=== PATIENT | female | born 1990 | race Caucasian/White ===

== ENCOUNTER 2018-07-20 10:19 | Inpatient (IN) | payer OTHER ==
[~2018-07-20] VITALS: Ht 170.2 cm; Wt 76.7 kg
[2018-07-20 10:32] VITALS: BP 122/88
[2018-07-20] MEDS ORDERED: NACL 0.9% 1,000 ML IV SCH ×2 (10:49→14:13)
[2018-07-20] MEDS ORDERED: ONDANSETRON 4 MG/2 ML VIAL IVP ONE (10:50)
[2018-07-20] MEDS ORDERED: HYDROmorphone PFS 2 MG/ML SYR IVP ONE (10:50)
[2018-07-20] MEDS ORDERED: KETOROLAC 30 MG/ML VIAL IVP ONE (10:50)
[2018-07-20 11:25] LABS: BASOPHILS % (AUTO) 0.3 % (0.0-2.0); EOSINOPHILS # (AUTO) 0.1 K/uL (0-0.4); EOSINOPHILS % (AUTO) 1.1 % (0.0-4.0); HEMATOCRIT 43.3 % (36-48); HEMOGLOBIN 14.4 g/dL (12.0-16.0); LYMPHOCYTES # (AUTO) 2.3 K/uL (2.5-16.5); LYMPHOCYTES % (AUTO) 36.7 % (20.5-51.1); MEAN CORPUSCULAR HEMOGLOBIN 29 pg (27-31); MEAN CORPUSCULAR HGB CONC 33 g/dL (33-37); MEAN CORPUSCULAR VOLUME 87.6 fL (80-94); MONOCYTES # (AUTO) 0.3 K/uL (0.8-1.0); NEUTROPHILS # (AUTO) 3.5 K/uL (1.8-7.7); NEUTROPHILS % (AUTO) 56.9 % (42.2-75.2); PLATELET COUNT (AUTO) 298 K/uL (140-450); RED BLOOD CELL COUNT(AUTO) 4.94 MIL/uL (4.20-5.40); RED CELL DISTRIBUTION WIDTH 13.2 % (11.6-13.7); WHITE BLOOD COUNT (AUTO) 6.2 K/uL (4.8-10.8)
[2018-07-20 11:32] LABS: ANION GAP 14.6 (8-16); CARBON DIOXIDE 23.8 mmol/L (21-32); CREATININE 0.6 mg/dL (0.6-1.3); POTASSIUM 4.4 mmol/L (3.5-5.1)
[2018-07-20 11:36] LABS: APPEARANCE,URINE CLEAR (CLEAR); BILIRUBIN,URINE NEGATIVE (NEGATIVE); BLOOD, URINE NEGATIVE (NEGATIVE); COLOR,URINE YELLOW (YELLOW); LEUKOCYTE ESTERASE ,URINE NEGATIVE (NEGATIVE); NITRITE, URINE NEGATIVE (NEGATIVE); PH,URINE 5.5 (5.0-9.0); UGLUCOSE 3+ (NEGATIVE)
[2018-07-20 11:40] LABS: ALBUMIN 3.6 g/dL (3.4-5.0); TOTAL BILIRUBIN 0.3 mg/dL (0.0-1.0)
[2018-07-20] MEDS ORDERED: MORPHINE SULFATE 4 MG/ML SYR IVP ONE (13:25)
[2018-07-20] MEDS ORDERED: ONDANSETRON 4 MG/2 ML VIAL IVP PRN (14:15)
[2018-07-20 14:50] VITALS: BP 129/88
[2018-07-20] MEDS ORDERED: PIPER/TAZO 3.375GM/D5W PREMIX 50 ML IV SCH ×3 (15:30→21:00)
[2018-07-20] MEDS: DEXT 5% / NACL 0.45% 1,000 ML IV SCH (16:13)
[2018-07-20] MEDS: LORazepam 2 MG/ML VIAL IVP PRN ×2 (16:18→19:47)
[2018-07-20] MEDS ORDERED: PIPERACILLIN/TAZOBACTAM 3.375 GM in DEXTROSE 5% 50 ML IV SCH (18:00)
[2018-07-20] MEDS: PIPER/TAZO 3.375GM/D5W PREMIX 50 ML IV SCH ×2 (18:23→23:40)
[2018-07-20 20:00] VITALS: BP 118/77
[2018-07-21] VITALS: BP 120/83
[2018-07-21] MEDS: DEXT 5% / NACL 0.45% 1,000 ML IV SCH ×3 (05:02→20:15)
[2018-07-21] MEDS: PIPER/TAZO 3.375GM/D5W PREMIX 50 ML IV SCH ×3 (05:03→18:11)
[2018-07-21] MEDS: MORPHINE SULFATE 4 MG/ML SYR IVP PRN (05:08)
[2018-07-21 06:38] LABS: BASOPHILS % (AUTO) 0.7 % (0.0-2.0); EOSINOPHILS # (AUTO) 0.1 K/uL (0-0.4); EOSINOPHILS % (AUTO) 1.9 % (0.0-4.0); HEMOGLOBIN 12.9 g/dL (12.0-16.0); LYMPHOCYTES # (AUTO) 2.4 K/uL (2.5-16.5); LYMPHOCYTES % (AUTO) 36.2 % (20.5-51.1); MEAN CORPUSCULAR HEMOGLOBIN 29 pg (27-31); MEAN CORPUSCULAR HGB CONC 33 g/dL (33-37); MEAN CORPUSCULAR VOLUME 88.8 fL (80-94); MONOCYTES # (AUTO) 0.5 K/uL (0.8-1.0); MONOCYTES % (AUTO) 6.8 % (1.7-9.3); NEUTROPHILS # (AUTO) 3.7 K/uL (1.8-7.7); NEUTROPHILS % (AUTO) 54.4 % (42.2-75.2); PLATELET COUNT (AUTO) 256 K/uL (140-450); RED BLOOD CELL COUNT(AUTO) 4.39 MIL/uL (4.20-5.40); RED CELL DISTRIBUTION WIDTH 13.4 % (11.6-13.7); WHITE BLOOD COUNT (AUTO) 6.7 K/uL (4.8-10.8)
[2018-07-21 07:09] LABS: ANION GAP 12.7 (8-16); CARBON DIOXIDE 24.2 mmol/L (21-32); CREATININE 0.7 mg/dL (0.6-1.3); MAGNESIUM 1.9 mg/dL (1.8-2.4); POTASSIUM 3.9 mmol/L (3.5-5.1); TOTAL BILIRUBIN 0.5 mg/dL (0.0-1.0)
[2018-07-21 08:00] VITALS: BP 113/77
[2018-07-21] MEDS: LORazepam 2 MG/ML VIAL IVP PRN ×3 (08:29→18:12)
[2018-07-21 09:25] LABS: PROTHROMBIN TIME 9.7 secs (10.8-13.4)
[2018-07-21] MEDS: ENOXAPARIN 40 MG/0.4 ML SYR SUBQ SCH (09:37)
[2018-07-21] MEDS ORDERED: INSULIN LISPRO SLIDING SCALE 100 UNITS/ML VIAL SUBQ PRN (13:25)
[2018-07-21 16:00] VITALS: BP 111/71
[2018-07-21] MEDS: KETOROLAC 30 MG/ML VIAL IVP PRN (22:23)
[2018-07-22] VITALS: BP 96/70
[2018-07-22] MEDS: PIPER/TAZO 3.375GM/D5W PREMIX 50 ML IV SCH ×5 (00:27→21:28)
[2018-07-22] MEDS: DEXT 5% / NACL 0.45% 1,000 ML IV SCH ×2 (03:35→06:15)
[2018-07-22 08:00] VITALS: BP 115/76
[2018-07-22] MEDS ORDERED: BUPIVACAINE-MPF 0.25% 30 ML VIAL INJ ONE (08:11)
[2018-07-22] MEDS ORDERED: DEXTROSE 50% 50 ML SYR IVP PRN ×2 (08:35→14:45)
[2018-07-22] MEDS: INSULIN LISPRO SLIDING SCALE 100 UNITS/ML VIAL SUBQ PRN ×5 (08:39→23:54)
[2018-07-22] MEDS: ENOXAPARIN 40 MG/0.4 ML SYR SUBQ SCH (09:00)
[2018-07-22] MEDS: NACL 0.9% 1,000 ML IV SCH ×2 (09:00→19:00)
[2018-07-22] MEDS: LORazepam 0.5 MG TAB PO PRN ×2 (10:22→17:02)
[2018-07-22] MEDS ORDERED: NICOTINE TRANSD SYS 14 MG/24 HR PATCH TD SCH (11:15)
[2018-07-22] MEDS ORDERED: BLOOD GLUCOSE MONITORING 1 DEV DEV FS SCH (12:00)
[2018-07-22] MEDS: MORPHINE SULFATE 4 MG/ML SYR IVP PRN ×2 (12:35→23:59)
[2018-07-22] MEDS ORDERED: INSULIN LISPRO SLIDING SCALE 100 UNITS/ML VIAL SUBQ PRN (14:45)
[2018-07-22 16:00] VITALS: BP 115/76
[2018-07-22] MEDS: BLOOD GLUCOSE MONITORING 1 DEV DEV FS SCH ×3 (16:30→23:53)
[2018-07-22] MEDS: KETOROLAC 30 MG/ML VIAL IVP PRN (16:57)
[2018-07-22] MEDS ORDERED: TEMAZEPAM 15 MG CAP PO ONE (21:00)
[2018-07-22] MEDS ORDERED: TEMAZEPAM 15 MG CAP PO PRN (21:00)
[2018-07-22] MEDS ORDERED: TEMAZEPAM 15 MG CAP PO SCH (21:00)
[2018-07-22 23:58] VITALS: BP 103/65
[2018-07-23] MEDS: BLOOD GLUCOSE MONITORING 1 DEV DEV FS SCH ×5 (03:56→21:00)
[2018-07-23] MEDS: NACL 0.9% 1,000 ML IV SCH ×2 (05:00→12:54)
[2018-07-23] MEDS: PIPER/TAZO 3.375GM/D5W PREMIX 50 ML IV SCH ×4 (05:49→23:42)
[2018-07-23] MEDS: MORPHINE SULFATE 4 MG/ML SYR IVP PRN ×3 (05:53→18:07)
[2018-07-23] MEDS ORDERED: BUPIVACAINE-MPF 0.25% 30 ML VIAL INJ ONE (06:44)
[2018-07-23 07:42] LABS: BASOPHILS % (AUTO) 0.2 % (0.0-2.0); EOSINOPHILS # (AUTO) 0.1 K/uL (0-0.4); EOSINOPHILS % (AUTO) 1.6 % (0.0-4.0); HEMATOCRIT 35.5 % (36-48); HEMOGLOBIN 11.8 g/dL (12.0-16.0); LYMPHOCYTES # (AUTO) 2.9 K/uL (2.5-16.5); LYMPHOCYTES % (AUTO) 40.4 % (20.5-51.1); MEAN CORPUSCULAR HEMOGLOBIN 30 pg (27-31); MEAN CORPUSCULAR HGB CONC 33 g/dL (33-37); MEAN CORPUSCULAR VOLUME 88.9 fL (80-94); MONOCYTES # (AUTO) 0.5 K/uL (0.8-1.0); MONOCYTES % (AUTO) 6.3 % (1.7-9.3); NEUTROPHILS # (AUTO) 3.7 K/uL (1.8-7.7); NEUTROPHILS % (AUTO) 51.5 % (42.2-75.2); PLATELET COUNT (AUTO) 251 K/uL (140-450); RED CELL DISTRIBUTION WIDTH 13.3 % (11.6-13.7); WHITE BLOOD COUNT (AUTO) 7.2 K/uL (4.8-10.8)
[2018-07-23] MEDS: INSULIN LISPRO SLIDING SCALE 100 UNITS/ML VIAL SUBQ PRN ×4 (07:58→21:04)
[2018-07-23 08:00] VITALS: BP 123/70
[2018-07-23 08:00] LABS: ALBUMIN 2.5 g/dL (3.4-5.0); ANION GAP 14.2 (8-16); CARBON DIOXIDE 23.8 mmol/L (21-32); CREATININE 0.6 mg/dL (0.6-1.3); TOTAL BILIRUBIN 0.3 mg/dL (0.0-1.0)
[2018-07-23] MEDS ORDERED: DEXAMETHASONE 4 MG/ML VIAL ONE (08:00)
[2018-07-23] MEDS ORDERED: ROCURONIUM 50 MG/5 ML VIAL IV ONE (08:00)
[2018-07-23] MEDS ORDERED: KETOROLAC 30 MG/ML VIAL ONE (08:00)
[2018-07-23] MEDS ORDERED: PROPOFOL 200 MG/20 ML VIAL IV ONE (08:00)
[2018-07-23] MEDS ORDERED: DESFLURANE 240 ML BTL INH ONE (08:00)
[2018-07-23] MEDS ORDERED: ONDANSETRON 4 MG/2 ML VIAL ONE (08:00)
[2018-07-23] MEDS ORDERED: fentaNYL 0.05 MG/ML VIAL ONE (08:10)
[2018-07-23] MEDS ORDERED: HYDROmorphone PFS 2 MG/ML SYR ONE (08:10)
[2018-07-23] MEDS ORDERED: ONDANSETRON 4 MG/2 ML VIAL IVP PRN (08:15)
[2018-07-23] MEDS ORDERED: HYDROmorphone 1 MG/ML AMP IVP PRN (08:15)
[2018-07-23] MEDS ORDERED: ceFAZolin 1,000 MG VIAL ONE (08:26)
[2018-07-23] MEDS: ENOXAPARIN 40 MG/0.4 ML SYR SUBQ SCH (09:00)
[2018-07-23] MEDS: NICOTINE TRANSD SYS 14 MG/24 HR PATCH TD SCH (09:00)
[2018-07-23 16:00] VITALS: BP 121/81
[2018-07-23 20:00] VITALS: BP 106/78
[2018-07-23] MEDS: LORazepam 0.5 MG TAB PO PRN (20:56)
[2018-07-23] MEDS ORDERED: TEMAZEPAM 15 MG CAP PO SCH (21:00)
[2018-07-24] VITALS: BP 132/77
[2018-07-24] MEDS: NACL 0.9% 1,000 ML IV SCH ×2 (00:07→12:14)
[2018-07-24] MEDS: HYDROmorphone 1 MG/ML AMP IVP PRN ×3 (00:07→09:23)
[2018-07-24] MEDS: INSULIN LISPRO SLIDING SCALE 100 UNITS/ML VIAL SUBQ PRN ×3 (01:22→12:29)
[2018-07-24] MEDS: BLOOD GLUCOSE MONITORING 1 DEV DEV FS SCH ×4 (04:00→12:30)
[2018-07-24] MEDS: PIPER/TAZO 3.375GM/D5W PREMIX 50 ML IV SCH ×2 (05:03→12:30)
[2018-07-24 05:07] VITALS: BP 108/70
[2018-07-24 08:00] VITALS: BP 111/75
[2018-07-24] MEDS ORDERED: INSULIN LANTUS 100 UNITS/ML 10 ML VIAL SUBQ SCH (09:00)
[2018-07-24] MEDS: NICOTINE TRANSD SYS 14 MG/24 HR PATCH TD SCH (09:00)
[2018-07-24] MEDS: ENOXAPARIN 40 MG/0.4 ML SYR SUBQ SCH (09:00)
[2018-07-24] MEDS ORDERED: LANTUS SUBQ (10:52)
[2018-07-24] MEDS ORDERED: HUM SUBQ (10:52)
[2018-07-24 11:17] LABS: BASOPHILS % (AUTO) 0.4 % (0.0-2.0); EOSINOPHILS % (AUTO) 0.8 % (0.0-4.0); HEMATOCRIT 35.3 % (36-48); HEMOGLOBIN 11.7 g/dL (12.0-16.0); LYMPHOCYTES # (AUTO) 2.1 K/uL (2.5-16.5); LYMPHOCYTES % (AUTO) 34.1 % (20.5-51.1); MEAN CORPUSCULAR HEMOGLOBIN 30 pg (27-31); MEAN CORPUSCULAR HGB CONC 33 g/dL (33-37); MEAN CORPUSCULAR VOLUME 89.6 fL (80-94); MONOCYTES # (AUTO) 0.4 K/uL (0.8-1.0); MONOCYTES % (AUTO) 6.7 % (1.7-9.3); NEUTROPHILS # (AUTO) 3.7 K/uL (1.8-7.7); PLATELET COUNT (AUTO) 261 K/uL (140-450); RED BLOOD CELL COUNT(AUTO) 3.94 MIL/uL (4.20-5.40); RED CELL DISTRIBUTION WIDTH 13.2 % (11.6-13.7); WHITE BLOOD COUNT (AUTO) 6.3 K/uL (4.8-10.8)
[2018-07-24 11:36] LABS: ALBUMIN 2.7 g/dL (3.4-5.0); ANION GAP 15.2 (8-16); CARBON DIOXIDE 23.4 mmol/L (21-32); CREATININE 0.5 mg/dL (0.6-1.3); POTASSIUM 3.6 mmol/L (3.5-5.1); TOTAL BILIRUBIN 0.7 mg/dL (0.0-1.0)
[2018-07-24] MEDS ORDERED: HYDR-5123 PO (13:12)
[2018-07-24] MEDS ORDERED: DOCU-299 PO (13:15)
== END 2018-07-24 14:10 | disposition home or self-care (01) | DRG 263 ==
LOC: MED 10:19 → MTU 14:22
PROVIDERS: ADMIT Hospitalist; ATTEND Hospitalist
PROC: 0FT44ZZ Resection of Gallbladder, Percutaneous Endoscopic Approach (ICD-10-PCS; principal; 2018-07-23 08:00)
DX: K80.10 Calculus of gallbladder with chronic cholecystitis without obstruction (principal); E11.65 Type 2 diabetes mellitus with hyperglycemia; N83.209 Unspecified ovarian cyst, unspecified side; F12.90 Cannabis use, unspecified, uncomplicated; Z86.32 Personal history of gestational diabetes
CPT/HCPCS: 36415; 71046; 76700; 76830; 80053; 81003; 82374; 82948; 83036; 83690; 83735; 84703; 85025; 85610; 85730; 87081; 93005; 96361; 96374; 96375; 99285; J0690; J1100; J1170; J1650; J1815; J1885; J2060; J2270; J2405; J2543; J2704; J3010; J3490; J7030; J7060; Q0092; Q9967